=== PATIENT | female | born 1995 | race Caucasian/White ===

== ENCOUNTER 2025-03-19 00:16 | Observation (INO) | payer MEDICAID, OTHER ==
[~2025-03-19] VITALS: Ht 157.5 cm; Wt 137.4 kg
[2025-03-19] MEDS ORDERED: MOM 30 ML SUSPENSION UDC PO PRN (02:30)
[2025-03-19] MEDS ORDERED: VITA200012 PO (02:38)
[2025-03-19] MEDS ORDERED: LAMO100T3 PO (02:38)
[2025-03-19] MEDS ORDERED: MELA5TAB44 PO (02:38)
[2025-03-19] MEDS ORDERED: INDE120C5 PO (02:38)
[2025-03-19] MEDS ORDERED: CETI-24 PO (02:38)
[2025-03-19] MEDS ORDERED: CLOB10TA3 PO (02:38)
[2025-03-19] MEDS ORDERED: FOLI1TAB11 PO (02:38)
[2025-03-19] MEDS ORDERED: LAMO250T PO (02:48)
[2025-03-19] MEDS ORDERED: VIMP100T PO (02:48)
[2025-03-19] MEDS ORDERED: PANT40TA29 PO (02:48)
[2025-03-19] MEDS ORDERED: HOME MED LIST COMPLETE! XX SCH ×2 (02:50→06:05)
[2025-03-19 03:15] LABS: PLATELET COUNT, AUTOMATED 285 10^3/uL (150-450)
[2025-03-19 03:34] LABS: ALT/SGPT 29 U/L (7.0-40); AST/SGOT 79 U/L (<34); CALCIUM LEVEL 8.9 MG/DL (8.5-10.1); CARBON DIOXIDE LEVEL 27 MMOL/L (20-31); CHLORIDE LEVEL 103 MMOL/L (98-107); CREATININE FOR GFR 0.74 MG/DL (0.55-1.30); GLOMERULAR FILTRATION RATE > 90.0 (>60); POTASSIUM SERUM 5.7 MMOL/L (3.5-5.1); SODIUM LEVEL 142 MMOL/L (136-145)
[2025-03-19] MEDS ORDERED: LAMI25TA PO (06:04)
[2025-03-19] MEDS: LACOSAMIDE 50 MG TAB PO SCH (09:34)
[2025-03-19] MEDS: lamoTRIgine 100 MG TAB PO SCH ×2 (09:34→21:01)
[2025-03-19] MEDS: PANTOPRAZOLE 40MG TAB PO SCH (09:35)
[2025-03-19] MEDS: FOLIC ACID 1 MG TAB PO SCH (09:35)
[2025-03-19] MEDS: ENOXAPARIN 40 MG/0.4 ML SYRINGE (J1650 PER 10MG) SC SCH (09:35)
[2025-03-19 12:00] VITALS: BP 113/58; TEMP 98; O2SAT 96
[2025-03-19 16:00] VITALS: BP 117/56; TEMP 98.9; O2SAT 96
[2025-03-19] MEDS: ACETAMINOPHEN 325 MG TAB PO PRN (19:07)
[2025-03-19 19:49] VITALS: BP 128/62; TEMP 97.6; O2SAT 93
[2025-03-19 20:00] VITALS: BP 128/62; TEMP 97.6; O2SAT 93
[2025-03-19] MEDS: CHLORHEXIDINE GLUCONATE 0.12% 15 ML UDC SSP SCH (21:00)
[2025-03-19] MEDS: PROPRANOLOL 60MG LA CAP PO SCH (21:00)
[2025-03-19] MEDS: lamoTRIgine 25 MG TAB PO SCH (21:01)
[2025-03-19] MEDS: DIVALPROEX 500 MG *ER* TAB PO SCH (21:01)
[2025-03-20 03:43] VITALS: BP 124/70; TEMP 96.3
[2025-03-20] MEDS: VITAMIN D 1,000 INTERNATIONAL UNITS TABLET PO SCH (09:27)
[2025-03-20 09:30] LABS: BASO # 0.1 10^3/uL (0.0-0.2); BASO % 0.7 % (0.0-1.0); EOS # 0.1 10^3/uL (0.0-0.5); EOS % 0.9 % (0.0-3.0); LYMPH # 2.0 10^3/uL (1.5-5.0); LYMPH % 21.4 % (24.0-44.0); MONO # 1.0 10^3/uL (0.0-0.8); MONO % 10.1 % (2.0-8.0); NEUTROPHILS # 6.4 10^3/uL (1.5-8.5); NEUTROPHILS % 66.6 % (36.0-66.0); PLATELET COUNT, AUTOMATED 238 10^3/uL (150-450)
[2025-03-20] MEDS: CETIRIZINE 10 MG TAB PO SCH (09:32)
[2025-03-20] MEDS: FLUTICASONE PROPIONATE 0.05% NASAL SPRAY 16 GM NARES SCH (09:33)
[2025-03-20 09:43] LABS: KETONE, URINE AUTO RFX NEGATIVE (NEGATIVE); MUCUS, URINE RFX SMALL (NEGATIVE); NITRITE, URINE AUTO RFX NEGATIVE (NEGATIVE); RBC, URINE AUTO RFX 162 /HPF (0-3); SQUAM EPITHELIAL CELL UR AURFX 0 /HPF (0-6)
[2025-03-20 09:53] LABS: LEUKOCYTE ESTERASE UR AUTO RFX 3+ (NEGATIVE); WBC, URINE AUTO RFX TNTC /HPF (0-3)
[2025-03-20] MEDS ORDERED: FOSFOMYCIN TROMETHAMINE 3 GM POWDER PACKET PO ONE (10:00)
[2025-03-20 10:06] LABS: ALT/SGPT 13 U/L (7.0-40); AST/SGOT 14 U/L (<34); CALCIUM LEVEL 9.0 MG/DL (8.5-10.1); CARBON DIOXIDE LEVEL 27 MMOL/L (20-31); CHLORIDE LEVEL 107 MMOL/L (98-107); CREATININE FOR GFR 0.82 MG/DL (0.55-1.30); GLOMERULAR FILTRATION RATE > 90.0 (>60); POTASSIUM SERUM 4.0 MMOL/L (3.5-5.1); PROLACTIN 65.88 NG/ML; SODIUM LEVEL 143 MMOL/L (136-145)
[2025-03-20 12:04] VITALS: BP 123/65; TEMP 97.8; O2SAT 97
[2025-03-20] MEDS ORDERED: DIAZ2.5G2 PR (16:31)
[2025-03-20 20:18] VITALS: BP 118/58; TEMP 99.3; O2SAT 97
[2025-03-20 20:27] VITALS: BP 118/58
[2025-03-24 14:56] LABS: LAMOTRIGINE (LAMICTAL) 7.8 mcg/mL (2.5-15.0)
== END 2025-03-20 21:00 | disposition home or self-care (01) ==
LOC: M ED 00:16 → EDBD 00:16 → M ED INP 00:17 → M MS4PR 11:45
PROVIDERS: ADMIT Family Medicine; ATTEND General Practice
DX: G40.501 Epileptic seizures related to external causes, not intractable, with status epilepticus (principal); Z91.148 Patient's other noncompliance with medication regimen for other reason; G93.41 Metabolic encephalopathy; F88 Other disorders of psychological development; Z79.899 Other long term (current) drug therapy; R25.1 Tremor, unspecified; F31.9 Bipolar disorder, unspecified
CPT/HCPCS: 36415; 80053; 80164; 80175; 80235; 81001; 84146; 85025; 85027; 87086; 92610; 93005; 95819; 96372; 97161; 99285; G0480; J1650